=== PATIENT | female | born 1955 | race Caucasian/White ===

== ENCOUNTER 2019-03-13 10:26 | Outpatient (CLI) | payer OTHER ==
[2019-03-13] MEDS ORDERED: CRAN500T2 PO (11:12)
[2019-03-13 11:24] LABS: INTERNATIONAL NORMALIZED RATIO 0.96 (0.93-1.1); PROTHROMBIN TIME 10.2 Seconds (9.6-11.5)
[2019-03-13 11:25] LABS: BASOPHILS # (AUTO) 0.02 x10^3/uL (0-0.1); BASOPHILS % (AUTO) 0 % (0-1); EOSINOPHILS # (AUTO) 0.04 x10^3/uL (0-0.4); EOSINOPHILS % (AUTO) 1 % (1-7); LYMPHOCYTES # (AUTO) 1.22 x10^3/uL (1-3.4); LYMPHOCYTES % (AUTO) 19 % (22-44); MD NO; MEAN CORPUSCULAR HGB CONC 33.8 g/dL (32.4-35.8); MEAN CORPUSCULAR VOLUME 97.5 fL (80-100); MEAN PLATELET VOLUME 9.7 fL (7.4-10.4); MONOCYTES # (AUTO) 0.37 x10^3/uL (0.2-0.8); MONOCYTES % (AUTO) 6 % (2-9); NEUTROPHILS # (AUTO) 4.84 x10^3/uL (1.8-6.8); NEUTROPHILS % (AUTO) 75 % (42-75); PLATELET COUNT 216 x10^3/uL (130-400); RED BLOOD COUNT 4.33 x10^6/uL (3.82-5.3); RED CELL DISTRIBUTION WIDTH 12.8 % (9.6-15.2)
[2019-03-13 11:26] LABS: ALANINE AMINOTRANSFERASE 26 U/L (12-78); ALBUMIN 3.9 g/dL (3.4-5.0); ANION GAP 8 mmol/L (5-15); CALCIUM 8.6 mg/dL (8.5-10.1); CHLORIDE 107 mmol/L (98-107)
[2019-03-13 11:28] LABS: ALKALINE PHOSPHATASE 85 U/L (45-117); BILIRUBIN,TOTAL 0.5 mg/dL (0.2-1.0); CREATININE 0.84 mg/dL (0.55-1.02); TOTAL PROTEIN 7.5 g/dL (6.4-8.2)
== END 2019-03-13 23:59 | disposition home or self-care (01) ==
LOC: STAR 10:26
PROVIDERS: ATTEND Specialist
DX: Z01.818 Encounter for other preprocedural examination (principal); C54.1 Malignant neoplasm of endometrium; N95.0 Postmenopausal bleeding
CPT/HCPCS: 36415; 71046; 80053; 85025; 85610; 85730; 86304; 93005

== ENCOUNTER 2019-03-17 11:39 | Day surgery (SDC) | payer BC, OTHER ==
[~2019-03-17] VITALS: Ht 157.5 cm; Wt 67.7 kg
[~2019-03-17 11:39] MED LIST: CRAN500T2 PO
[2019-03-17] MEDS ORDERED: ACETAMINOPHEN 500 MG TABLET PO ONE ×2 (12:30→13:00)
[2019-03-17] MEDS ORDERED: SCOPOLAMINE PATCH, 1.5MG PATCH.TD72 TD ONE ×2 (12:30→13:00)
[2019-03-17] MEDS ORDERED: GABAPENTIN 300 MG CAPSULE PO ONE ×2 (12:30→13:00)
[2019-03-17] MEDS ORDERED: LACTATED RINGERS 1,000 ML IV SCH (12:44)
[2019-03-17 12:45] VITALS: BP 144/83
[2019-03-17] MEDS ORDERED: BUPIVACAINE/PF-EPI 0.25% 1:200K ONE (12:52)
[2019-03-17] MEDS ORDERED: PLEASE ENTER ALLERGIES MC SCH (13:00)
[2019-03-17] MEDS ORDERED: CEFOTETAN PMX 2GM/50ML 50 ML IV ONE (13:00)
[2019-03-17] MEDS ORDERED: MIDAZOLAM 1 MG/ML, 2ML ONE (15:36)
[2019-03-17] MEDS ORDERED: FENTANYL PF 250 MCG/5ML ONE (15:37)
[2019-03-17] MEDS ORDERED: HALOPERIDOL 5 MG/ML IV PRN (16:00)
[2019-03-17] MEDS ORDERED: hydrALAzine 20 MG/ML, 1ML IV PRN (16:00)
[2019-03-17] MEDS ORDERED: OXYcodone 5 MG/5 ML ORAL.SOL UDC PO PRN (16:00)
[2019-03-17] MEDS ORDERED: LABETALOL 5MG/ML, 20ML IV PRN (16:00)
[2019-03-17] MEDS ORDERED: PROMETHAZINE 25 MG/ML, 1ML IV PRN (16:00)
[2019-03-17] MEDS ORDERED: HYDROmorphone 2 MG/ML, 1ML IVPush PRN (16:00)
[2019-03-17] MEDS ORDERED: MEPERIDINE/PF 25MG/ML,1ML IVPush PRN (16:00)
[2019-03-17] MEDS ORDERED: ALBUTEROL SULFATE 2.5 MG/3 ML NPPB PRN (16:00)
[2019-03-17] MEDS ORDERED: INDOCYANINE GREEN 25 MG VIAL ONE (16:08)
[2019-03-17] MEDS ORDERED: CEFAZOLIN 1,000 MG ONE (17:34)
[2019-03-17] MEDS ORDERED: DEXAMETHASONE 4 MG/ML, 1ML ONE (17:34)
[2019-03-17] MEDS ORDERED: PROPOFOL 10 MG/ML, 20ML ONE (17:34)
[2019-03-17] MEDS ORDERED: NEOSTIGMINE 1 MG/ML, 10ML ONE (17:34)
[2019-03-17] MEDS ORDERED: GLYCOPYRROLATE 0.2MG/1ML, 5ML ONE (17:34)
[2019-03-17] MEDS ORDERED: ONDANSETRON 2MG/ML, 2ML ONE ×2 (17:34→18:28)
[2019-03-17] MEDS ORDERED: SUCCINYLCHOLINE 20 MG/ML, 10ML ONE (17:34)
[2019-03-17] MEDS ORDERED: ROCURONIUM 10MG/ML,5ML ONE (17:34)
[2019-03-17] MEDS ORDERED: FENTANYL PF 100 MCG/2ML ONE (18:08)
[2019-03-17] MEDS ORDERED: OXYcodone 5 MG/5 ML ORAL.SOL UDC ONE (18:09)
[2019-03-17] MEDS: FENTANYL PF 100 MCG/2ML IV PRN ×2 (18:12→18:33)
== END 2019-03-17 21:40 | disposition home or self-care (01) ==
LOC: OUT 11:39 → 3WST 19:25 → OUT 21:40
PROVIDERS: ATTEND Specialist
DX: C54.1 Malignant neoplasm of endometrium (principal); D27.0 Benign neoplasm of right ovary; R59.1 Generalized enlarged lymph nodes; N95.0 Postmenopausal bleeding; N88.8 Other specified noninflammatory disorders of cervix uteri; N80.0 Endometriosis of uterus; I25.2 Old myocardial infarction; E03.9 Hypothyroidism, unspecified; Z72.89 Other problems related to lifestyle; Z88.5 Allergy status to narcotic agent
CPT/HCPCS: 36415; 38572; 58552; 74018; 86850; 86900; 88112; 88305; 88309; 88333; G0378; J0330; J0690; J1100; J2250; J2405; J2704; J2710; J3010; J3490; J7120; S2900

== ENCOUNTER → 2019-05-13 | Outpatient (CLI) | payer OTHER ==
[~2019-05-13] MED LIST changes: +OMNIPAQUE 350 MG/ML, 100ML BOTTLE ONE
== END | disposition home or self-care (01) ==
LOC: CFH 08:53
PROVIDERS: ATTEND Nurse Practitioner Acute Care
DX: C54.1 Malignant neoplasm of endometrium (principal); N95.0 Postmenopausal bleeding; M47.816 Spondylosis without myelopathy or radiculopathy, lumbar region; Z90.710 Acquired absence of both cervix and uterus
CPT/HCPCS: 71260; 74177; 82565; Q9967

== ENCOUNTER → 2019-06-19 | Outpatient (CLI) | payer OTHER ==
[~2019-06-19] MED LIST changes: -OMNIPAQUE 350 MG/ML, 100ML BOTTLE ONE
== END | disposition home or self-care (01) ==
LOC: ROC 07:25
PROVIDERS: ATTEND Radiology Radiation Oncology
DX: C54.1 Malignant neoplasm of endometrium (principal); N95.8 Other specified menopausal and perimenopausal disorders
CPT/HCPCS: 99214; G0463